=== PATIENT | male | born 1985 | race Caucasian/White ===

== ENCOUNTER 2021-12-08 20:30 | Emergency (ER) | payer SELFPAY ==
[~2021-12-08] VITALS: Ht 177.8 cm; Wt 90.9 kg
[2021-12-08] MEDS ORDERED: NEOMYCIN/BACITRACIN/POLYMYXIN B OINTMENT PACKET TP ONE (21:00)
[2021-12-08] MEDS ORDERED: LIDOCAINE 1% 10 ML VIAL SQ ONE (21:00)
[2021-12-08] MEDS ORDERED: PERTUSS(ACELL),DIPH,TET VAC/PF 0.5 ML SYRINGE IM. ONE (21:00)
[2021-12-08] MEDS ORDERED: ACETAMINOPHEN/CODEINE 300-30 MG TABLET PO ONE (22:15)
[2021-12-08] MEDS ORDERED: IBUPROFEN 600 MG TABLET PO ONE (22:15)
[2021-12-08 22:56] VITALS: BP 140/79
[2021-12-08] MEDS ORDERED: IBUP-1554 PO (23:27)
[2021-12-08] MEDS ORDERED: CEPH-558 PO (23:27)
[2021-12-09] MEDS ORDERED: CEPH-558 PO (18:42)
[2021-12-09] MEDS ORDERED: IBUP-1554 PO (18:42)
== END 2021-12-09 00:04 | disposition home or self-care (01) ==
LOC: EMS 20:34
DX: S02.31XA Fracture of orbital floor, right side, initial encounter for closed fracture (principal); S06.0X9A Concussion with loss of consciousness of unspecified duration, initial encounter; S01.81XA Laceration without foreign body of other part of head, initial encounter; S81.012A Laceration without foreign body, left knee, initial encounter; S80.212A Abrasion, left knee, initial encounter; S60.311A Abrasion of right thumb, initial encounter; F10.129 Alcohol abuse with intoxication, unspecified; F12.90 Cannabis use, unspecified, uncomplicated; W18.39XA Other fall on same level, initial encounter; Y93.89 Activity, other specified; Y92.89 Other specified places as the place of occurrence of the external cause; Y99.8 Other external cause status
CPT/HCPCS: 99284; 70450; 36415; 73140; 73562; 70486; 90715; 90471; 12015; J3490

== ENCOUNTER 2021-12-14 10:46 | Emergency (ER) | payer SELFPAY ==
[~2021-12-14] VITALS: Ht 167.6 cm; Wt 79.5 kg
[~2021-12-14 10:46] MED LIST: CEPH-558 PO; IBUP-1554 PO
[2021-12-14 11:07] VITALS: BP 133/90
[2021-12-14] MEDS ORDERED: GENTOS OD (11:15)
[2021-12-14] MEDS ORDERED: BACI28OI29 TP (11:15)
[2021-12-14] MEDS ORDERED: HYDROGEN PEROXIDE 118 ML SOLUTION TP ONE (11:30)
[2021-12-14] MEDS ORDERED: NEOMYCIN/BACITRACIN/POLYMYXIN B OINTMENT PACKET TP ONE (11:30)
== END 2021-12-14 12:16 | disposition home or self-care (01) ==
LOC: EMS 10:46
DX: S02.31XA Fracture of orbital floor, right side, initial encounter for closed fracture (principal); S00.11XA Contusion of right eyelid and periocular area, initial encounter; S80.212A Abrasion, left knee, initial encounter; F12.90 Cannabis use, unspecified, uncomplicated; Z79.899 Other long term (current) drug therapy; Y04.0XXA Assault by unarmed brawl or fight, initial encounter; Y93.89 Activity, other specified; Y92.89 Other specified places as the place of occurrence of the external cause; Y99.8 Other external cause status
CPT/HCPCS: 99283